=== PATIENT | female | born 1990 | race Caucasian/White ===

== ENCOUNTER 2017-09-04 21:21 | Emergency (ER) | payer OTHER ==
[~2017-09-04] VITALS: Ht 172.7 cm; Wt 77.0 kg
[2017-09-05 00:15] VITALS: BP 105/55
== END 2017-09-05 01:43 | disposition home or self-care (01) ==
LOC: ER 21:21
DX: F41.9 Anxiety disorder, unspecified (principal)
CPT/HCPCS: 71045; 81025; 93005; 99284